=== PATIENT | male | born 1965 | race Caucasian/White ===

== ENCOUNTER → 2016-09-02 | Outpatient (CLI) | payer OTHER ==
[2016-09-02 11:08] LABS: BASOPHILS # (AUTO) 0.03 10*3/UL; BASOPHILS % (AUTO) 0.4 % (0-1); EOSINOPHILS % (AUTO) 2.6 % (0-8); HEMATOCRIT 43.6 % (42.0-52.0); HEMOGLOBIN 15.2 g/dL (14.0-18.0); IMM GRAN % (AUTO) 0.4 % (0-5); IMM GRAN# (AUTO) 0.03 10*3/UL; LYMPHOCYTES # (AUTO) 2.44 10*3/uL; LYMPHOCYTES % (AUTO) 32.9 % (10-50); MEAN CORPUSCULAR HEMOGLOBIN 31.9 PG (27-31); MEAN CORPUSCULAR HGB CONC 34.9 g/dL (33-37); MEAN PLATELET VOLUME 10.1 FL (7.4-12.2); MONOCYTES # (AUTO) 0.58 10*3/UL (0.3-0.8); MONOCYTES % (AUTO) 7.8 % (5-15); NEUTROPHILS # (AUTO) 4.15 10*3/UL; NEUTROPHILS % (AUTO) 55.9 % (50-80); RDW COEFFICIENT OF VARIATION 13.6 % (11.5-14.5); RED BLOOD COUNT 4.76 10^6/uL (4.70-6.10); WHITE BLOOD COUNT 7.42 10^3/uL (4.8-10.8)
[2016-09-02 11:12] LABS: ASPARTATE AMINO TRANSFERASE 28 IU/L (21-57); BILIRUBIN,TOTAL 0.9 mg/dL (0.3-1.2); BLOOD UREA NITROGEN 14 mg/dL (7-22); BUN/CREATININE RATIO 15.55 (6-20); CALCIUM 9.4 mg/dL (8.7-10.7); CHLORIDE 102 meq/L (98-112); CREATININE 0.9 mg/dL (0.70-1.50); EST GLOMERULAR FILTRATION > 60 (>60 ml/min/1.73m(2)); GLUCOSE 98 mg/dL (78-110); POTASSIUM 3.6 meq/L (3.8-5.2); SODIUM 141 meq/L (135-145); TOTAL PROTEIN 7.4 g/dL (6.1-8.0)
[2016-09-02 11:13] LABS: PLATELET MORPHOLOGY COMMENT NORMAL MORPHOLOGY (NORM)
== END ==
LOC: LAB 10:33
PROVIDERS: ATTEND Urology
DX: R68.82 Decreased libido (principal)
CPT/HCPCS: 36415; 80053; 84403; 85025

== ENCOUNTER → 2017-03-01 | Outpatient (CLI) | payer OTHER ==
[2017-03-01 09:41] LABS: HEMATOCRIT 46.8 % (42.0-52.0); HEMOGLOBIN 16.4 g/dL (14.0-18.0); MEAN CORPUSCULAR HEMOGLOBIN 31.5 PG (27-31); MEAN PLATELET VOLUME 9.5 FL (7.4-12.2); NEUTROPHILS % (AUTO) 46.4 % (50-80)
[2017-03-01 09:42] LABS: BASOPHILS # (AUTO) 0.04 10*3/UL; BASOPHILS % (AUTO) 0.4 % (0-1); EOSINOPHILS # (AUTO) 0.31 10*3/UL; EOSINOPHILS % (AUTO) 3.5 % (0-8); LYMPHOCYTES # (AUTO) 3.66 10*3/uL; MONOCYTES # (AUTO) 0.74 10*3/UL (0.3-0.8); MONOCYTES % (AUTO) 8.3 % (5-15); NEUTROPHILS # (AUTO) 4.13 10*3/UL; PLATELET MORPHOLOGY COMMENT NORMAL MORPHOLOGY (NORM); RBC MORPHOLOGY COMMENT NORMAL MORPHOLOGY (NORM); WBC MORPHOLOGY COMMENT NORMAL MORPHOLOGY (NORM)
[2017-03-01 09:49] LABS: BLOOD UREA NITROGEN 16 mg/dL (7-22); EST GLOMERULAR FILTRATION > 60 (>60 ml/min/1.73m(2)); SERUM ALBUMIN 4.2 g/dL (3.5-4.8)
[2017-03-01 09:50] LABS: CHOL/HDL RATIO 3.35 RATIO (0-4.0); HDL CHOLESTEROL 56 mg/dL (40-150); SERUM CHOLESTEROL 188 mg/dL (120-200)
== END ==
LOC: LAB 09:05
PROVIDERS: ATTEND Urology
DX: E29.1 Testicular hypofunction (principal); Z12.5 Encounter for screening for malignant neoplasm of prostate
CPT/HCPCS: 36415; 80053; 80061; 84153; 84403; 85025

== ENCOUNTER 2017-08-18 13:10 | Inpatient (IN) ==
--- NOTE | 2017-08-18 13:39 | PDOC ---
Abdomen/Flank HPI - General Chief Complaint: Abdomen Pain Stated Complaint: abd pain Date Seen by Provider: 08/18/17 Time Seen by Provider: 13:34 Source: POSITIVE: Patient Exam Limitations: POSITIVE: No limitations Nurse's Notes Reviewed & Considered: Yes - History of Present Illness Initial Comments: This is a 52-year-old male who presents to the emergency department with a history of problems with abdominal pain intermittently over the last 2 months or so prior to arrival. He was seen about a month ago at urgent care for the symptoms, and was given a diagnosis severe low bowel syndrome, given fentanyl and discharge. He states that the pain is not getting worse and so he decided to come in for evaluation. Pain is primarily in the periumbilical and right lower quadrant areas. No nausea vomiting, occasional diarrhea, rare hematochezia, no melena. No fevers, chills, body aches, although he does state that he gets clammy sometimes. - Patient Home Medications Home Medications: Home Medications dicyclomine 20 mg tablet 20 mg PO TID #30 tab 07/23/17 - Patient Allergies Allergies/Adverse Reactions: Allergies 3 Allergy/AdvReac Type Severity Reaction Status Date / Time No Known Allergies Allergy Verified 08/18/17 13:24 Past Medical History - heen HEENT History: Denies History Cardiovascular History: Denies History Respiratory History: Denies History Additional Respiratory History: ALLERGIC RHINITIS Gastrointestinal History: GI Bleed Additional Gastrointestinal History: BLOOD IN STOOL/ ABDOMINAL CRAMPING/ ALTERNATES FROM DIARRHEA TO CONSTIPATION Genitourinary History: Denies History Endocrine History: Denies History Musculoskeletal History: Back Pain Prosthesis or Implant: Yes (L ANKLE) Neurological History: Denies History Blood Disorders: Denies History Psychiatric History: Denies History History of Sexually Transmitted Diseases: No Cancer History: Denies History History of MDRO: No History of Other Communicable Diseases: No Tobacco Use: Former Smoker (Quit in 1993) Alcohol Use: Occasionally In the Past 12 Months, Have Used or Abuse Any Substance: Marijuana Previous Surgical History: Yes Type / Date of Surgery: APPY/ LEFT ANKLE LIGAMENT REPAIR/ TONSILLECTOMY/ WISDOM TOOTH Anesthesia Reactions: No Malignant Hyperthermia: No Significant Family History: Heart disease, Cancer, Hypertension Past Medical History Reviewed: Reviewed - Changes Made ROS - Limitations ROS Limitations: No Limitations Constitution: DENIES: Chills, Fever Cardiovascular: DENIES: Chest Pain Respiratory: REPORTS: Denies Resp Symptoms Neurological: DENIES: Difficulty Walking, Weakness Gastrointestinal: REPORTS: Abdominal Pain, Diarrhea, Bloody Stools. DENIES: Vomitting, Black Stools Musculoskeletal: DENIES: Muscle Aches Genitourinary: DENIES: Dysuria, Flank Pain, Hematuria ENT: REPORTS: Congestion, Nasal Drainage Abdominal/Flank Pain PE - General Appearance General Appearance: POSITIVE: Alert, Cooperative, Mild Distress - HEENT HEENT: POSITIVE: PERRL, EOMI - Respiratory Respiratory: POSITIVE: No Respiratory Distress, Breath Sounds Normal. NEGATIVE : Wheezes, Rales, Rhonchi - Cardiovascular Cardiovascular: POSITIVE: Regular Rate and Rhythm, Heart Sounds Normal - Chest Chest: POSITIVE: Non Tender - Abdomen Additional Abdominal Details: Abdomen is soft, nondistended, with mild to moderate tenderness to palpation in the infraumbilical and right lower quadrant areas. No rebound or guarding. Active bowel sounds. - Back Back: NEGATIVE: CVA Tenderness (R), CVA Tenderness (L) - Skin Skin: POSITIVE: Intact, Warm, Dry, No Rash - Extremities Additional Extremities Details: No pitting edema - Neurological Neurological: POSITIVE: Affect Apporpriate, Oriented X3 - Psychological Psychiatric: POSITIVE: Affect Appropriate, Mood Appropriate Abdomen Progress - Results Reviewed by me Xrays/CTs/US Reviewed by me: Yes Discussed with Radiologist: Yes Radiology Findings: Sigmoid diverticulitis with small contained perforation. Lab Results Reviewed by Me: Yes CBC and BMP: 08/18/17 14:10 08/18/17 14:10 - Patient's Progress Pain Medication Addressed: POSITIVE: Yes Re-examine Time: 16:23 Re-Examine Comment: Patient is stable, results discussed. Status: POSITIVE: Improved MDM / ED Course: Emergency room course: After initial evaluation, an IV was started. Labs were drawn, and a CT of his abdomen and pelvis was ordered. He was given Zofran and fentanyl for pain. Labs returned, his white count was 17,000. His CT shows acute sigmoid diverticulitis with small contained perforation. I suspect when discussed these results with Dr. Pruitt, the general surgeon on-call. After that discussion, his suggestion was to start him on Invanz and admit him for antibiotic cooldown by the hospitalist. He will subsequently have a resection with primary anastomosis if all goes well. - Consult Consulting MD will see pt:: POSITIVE: In ED Patient Care Time - Estimated PCT Patient Care Time (In Minutes): 25 Discharge Clinical Impression: Diverticulitis large intestine Discharge Disposition: Admit to Inpatient Condition: Stable Follow Up With: STEFFANIE PETERS [Primary Care Provider] - Date Decision to Admit to Inpatient: 08/18/17 Time Decision to Admit to Inpatient: 16:26
[2017-08-18] MEDS ORDERED: ONDANSETRON 4 MG/2 ML VIAL IVP ONE (13:41)
[2017-08-18] MEDS ORDERED: Sodium Chloride 0.9% 1,000 ML PRIMARY IV ONE (13:41)
[2017-08-18] MEDS ORDERED: fentaNYL Inj 100 MCG/2 ML VIAL IVP ONE (13:41)
[2017-08-18] MEDS: NORMAL SALINE 10 ML SYRINGE FLUSH IVP PRN ×3 (14:10→14:21)
[2017-08-18 14:28] LABS: BASOPHILS # (AUTO) 0.03 10*3/UL; BASOPHILS % (AUTO) 0.2 % (0-1); EOSINOPHILS # (AUTO) 0.22 10*3/UL; EOSINOPHILS % (AUTO) 1.2 % (0-8); Hematocrit [HCT] 51.9 % (42.0-52.0); Hemoglobin [HGB] 17.7 g/dL (14.0-18.0); LYMPHOCYTES # (AUTO) 2.39 10*3/uL; MEAN CORPUSCULAR HEMOGLOBIN 30.9 PG (27-31); MEAN CORPUSCULAR HGB CONC 34.1 g/dL (33-37); MEAN CORPUSCULAR VOLUME 90.6 FL (80-90); MEAN PLATELET VOLUME 9.8 FL (7.4-12.2); MONOCYTES # (AUTO) 1.69 10*3/UL (0.3-0.8); MONOCYTES % (AUTO) 9.6 % (5-15); NEUTROPHILS # (AUTO) 13.23 10*3/UL; NEUTROPHILS % (AUTO) 75.1 % (50-80); RED BLOOD COUNT 5.73 10^6/uL (4.70-6.10)
[2017-08-18 14:32] LABS: PLATELET MORPHOLOGY COMMENT NORMAL MORPHOLOGY (NORM); RBC MORPHOLOGY COMMENT NORMAL MORPHOLOGY (NORM); WBC MORPHOLOGY COMMENT NORMAL MORPHOLOGY (NORM)
[2017-08-18 14:37] LABS: BLOOD UREA NITROGEN 11 mg/dL (7-22); LIPASE 76 IU/L (23-300); SERUM ALBUMIN 4.6 g/dL (3.5-4.8)
[2017-08-18 14:55] LABS: BILIRUBIN,URINE NEGATIVE (NEG); CLARITY,URINE CLEAR (CLEAR); COLOR,URINE YELLOW (Y); GLUCOSE, URINE (UA) NEGATIVE (NEG); OCCULT BLOOD,URINE Trace-intact (NEG); PROTEIN,URINE NEGATIVE (NEG); UROBILINOGEN,URINE 0.2 EU/dL (0.2)
[2017-08-18 15:02] LABS: URINE SAMPLE TYPE CLEAN CATCH URINE
--- NOTE | 2017-08-18 15:59 | DI ---
History: Physician Notes: Tech Comments: Exam: CT ABDOMEN + PELVIS With Contrast Comparison: None available FINDINGS: Lung bases are clear. The liver, adrenal glands, spleen, pancreas, gallbladder and abdominal aorta appear within limits. Nonobstructing stone lower pole right kidney coronal 70. Symmetric nephrograms without hydronephrosis. Very small renal cyst upper pole left kidney. No bowel dilation or free air in the upper abdomen. Diverticulosis with sigmoid diverticulitis, pericolonic fat stranding and edema and a couple of small foci of air at the pericolonic fat for example axial 106 and coronal 42 which may represent a contained perforation in the mesentery. No abscess. Mild wall thickening of adjacent small bowel loop. Very small pelvic free fluid. The bladder is collapsed. Bilateral nonacute L5 spondylolysis. Nonspecific 1.2 cm ovoid increased area of density within the L1 vertebral body coronal 85. Old right lumbar transverse process fracture deformities. IMPRESSION: Diverticulosis with sigmoid diverticulitis, pericolonic fat stranding and edema and a couple of small foci of air at the pericolonic fat for example axial 106 and coronal 42 which may represent a contained perforation in the mesentery. No abscess. Mild wall thickening of adjacent small bowel loop. Very small pelvic free fluid. No bowel dilation or free air in the upper abdomen. Nonobstructing stone lower pole right kidney coronal 70. Symmetric nephrograms without hydronephrosis. Very small renal cyst upper pole left kidney.
[2017-08-18] MEDS ORDERED: Ertapenem Inj 1 GM in Sodium Chloride 0.9% 100 ML IV ONE (16:26)
[2017-08-18] MEDS ORDERED: LIDOCAINE W/ SODIUM BICARB 0.5 ML SYR SUBD PRN (17:13)
[2017-08-18] MEDS ORDERED: Lactated Ringers 1,000 ML PRIMARY IV ONE ×2 (17:13)
[2017-08-18] MEDS ORDERED: Ertapenem Inj 1 GM in Sodium Chloride 0.9% 100 ML IV SCH (17:13)
[2017-08-18] MEDS ORDERED: NORMAL SALINE 10 ML SYRINGE FLUSH IVP PRN (17:13)
[2017-08-18] MEDS ORDERED: ACETAMINOPHEN 325 MG TABLET PO PRN (17:13)
[2017-08-18] MEDS ORDERED: ONDANSETRON 4 MG/2 ML VIAL IVP PRN (17:13)
[2017-08-18] MEDS ORDERED: HYDROmorphone 2 MG/1 ML IVP PRN (17:14)
--- NOTE | 2017-08-18 17:26 | PDOC ---
HPI - History of Present Illness Date of Service: 08/18/17 Time of Service: 17:20 Chief Complaint: Abdominal pain History of Present Illness: This very pleasant 52-year-old male with prior history of colonoscopy that was positive only for mild hemorrhoids at the time who came in stating that he had development of abdominal pain, sharp, fairly constant, and increasing in intensity over the last 2 months. It was located in her umbilical and inferior to the umbilicus. Never quite had a pain like this before. No fevers and no chills. He has had intermittent diarrhea and constipation. Nothing is really seemed to make it better. He went into the urgent care clinic and was diagnosed with irritable bowel syndrome and they placed him on Bentyl. The patient tells me that did not help at all and his pain persisted and got significantly worse today. He came in for evaluation and was found to have a sigmoid diverticulum that appeared ruptured. It appeared to be a contained rupture. No abscess. He does not recall being told he had diverticular disease in the past. He is otherwise not on any medications and is otherwise healthy. As the pain was around the umbilicus, he thought maybe this was an umbilical hernia recurrence. Past Medical History Medical History: None Surgical History: 1. Ankle surgery. 2. Appendix removal. 3. Umbilical hernia repair Pertinent Family History: Significant for colon cancer in his mom and prostate cancer in his father. Past Social History: Smokes occasional marijuana. Does not smoke tobacco. Rarely drinks alcohol. Works for the [employer] for 12 years, has 2 children with his current and 4 children overall that he describes as healthy. Tobacco Use: Former Smoker (Quit in 1993) Do you dip or chew tobacco: No In the Past 12 Months, Have Used or Abuse Any of the Following Substance: Marijuana Alcohol Use: Occasionally Medication / Allergies Home Medications: Home Medications Medication Instructions Recorded Confirmed Type dicyclomine 20 mg tablet 20 mg PO TID #30 tab 07/23/17 08/18/17 Rx Allergies/Adverse Reactions: Allergies 3 Allergy/AdvReac Type Severity Reaction Status Date / Time No Known Allergies Allergy Verified 08/18/17 13:24 Review of Systems - Review of Systems All Systems: Reviewed & No Additional Complaints Except as Stated (I did a 12 point review systems and it was negative other than that discussed in history present illness.) Exam - Vitals Vital Signs: Vital Signs - Last Taken Temperature 97.1 F 08/18/17 13:10 Pulse Rate 105 H 08/18/17 13:10 Respiratory Rate 17 08/18/17 13:10 Blood Pressure 131/87 08/18/17 13:10 Pulse Ox 95 08/18/17 13:10 - General General Appearance: No Acute Distress, Cooperative - Head Head Exam: Normal Inspection, Normocephalic, Atraumatic - Eye Eye Exam: POSITIVE: EOMI, No Scleral Icterus - ENT ENT Exam: POSITIVE: Mucous Membranes Moist - Neck Neck Exam: Normal Inspection, No Tenderness, No Lymphadenopathy, No Thyromegaly - Respiratory Respiratory Exam: POSITIVE: Clear to Auscultation - Bilaterally, Breathing Non Labored, Normal to Percussion and Palpation - Cardiovascular Cardiovascular Exam: POSITIVE: RRR, No Murmur, No Clicks, No Gallops, No Rubs, No JVD - GI/Abdominal GI/Abdominal Exam: POSITIVE: Normal Bowel Sounds, Non Tender, Non Distended, Soft Additional GI/Abdominal Exam Details: I could not elicit tenderness, but the patient did state it was tender with palpation around the umbilicus and in the inferior quadrants. - Rectal Rectal Exam: POSITIVE: Deferred - External Exam: POSITIVE: Deferred Exam: POSITIVE: Deferred - Extremities Extremities Exam: POSITIVE: No Clubbing Present, No Edema Present, No Cyanosis Present - Back Back Exam: POSITIVE: Normal Inspection, No CVA Tenderness - Neurological Neurological Exam: POSITIVE: Alert, Oriented x 3, No Facial Droop, Speech Intact / Clear, Moves All Extremities Equally - Psychiatric Psychiatric Exam: POSITIVE: Normal Affect, Normal Mood - Integumentary Integumentary Exam: POSITIVE: Normal Color, Warm, Dry, Intact - Central Line Examination Central Line Present on Admission: No Results - Labs CBC and BMP: 08/18/17 14:10 08/18/17 14:10 Additional Lab Results: 08/18/17 08/18/17 13:41 14:10 Calcium 9.4 Total Bilirubin 1.0 AST 31 ALT 51 Alkaline Phosphatase 78 Total Protein 8.1 H Albumin 4.6 Amylase 58 Lipase 76 Ur Collection Type Clean catch urine Urine Occult Blood Trace-intact H Ur Culture Indicated? Culture not set - Imaging Status: Image Reviewed by Me, Report Reviewed by Me (The CT scan report shows a small left kidney cyst which I saw on my review of the film, and contained diverticular perforation. This is in the sigmoid colon.) Assessment and Plan - Patient Problems (1) Perforation of sigmoid colon due to diverticulitis Current Visit: Yes Status: Acute Code(s): K57.20 - Diverticulitis of large intestine with perforation and abscess without bleeding (2) Diverticulitis Current Visit: Yes Status: Acute Code(s): K57.92 - Diverticulitis of intestine, part unspecified, without perforation or abscess without bleeding Qualifiers: Diverticulitis site: large intestine Diverticulitis bleeding: without bleeding Diverticulitis complication: with perforation Qualified Code(s): K57.20 - Diverticulitis of large intestine with perforation and abscess without bleeding (3) Abdominal pain Current Visit: Yes Status: Acute Code(s): R10.9 - Unspecified abdominal pain Qualifiers: Abdominal location: periumbilical Qualified Code(s): R10.33 - Periumbilical pain - Assessment / Plan Additional Assessment/Plan Details: Admit the patient. Bolus LR 1 and then LR at 125 MLS per hour. Check electrolytes, CBC with differential, and PT and INR in the morning. Invanz IV, 1 g, every 24 hours. He'll need antibiotics for 10-14 days. Surgery consult, Dr. Pruitt is been called from the emergency room and will see the patient in terms of timing for any potential surgery for what appears to be sigmoid diverticular disease and diverticulitis. We all agree that it would be best to calm the bowel down first with antibiotics. Gut rest. Parenteral pain medications with Dilaudid and antiemetics as well. She is here today post this episode, I think the patient should increase fiber intake. Check labs a.m. I discussed with the patient and his , and they agreed with the plan.
--- NOTE | 2017-08-18 18:09 | CONSULT ---
Consult Note - Consult Consult Date: 08/18/17 Reason for Consult: PreOp Consulation : General Surgery Requesting Physician: Dr. Murphy, and Dr. Montero Primary Care Provider: Telma Kirby MD - History of Present Illness History of Present Illness: The patient is a 52-year-old male who reports he's had problems for several months. Actually he had a bout of abdominal pain about 6 months ago which resolved on its own. Sometime in the middle of June he developed some abdominal pain. It got worse and he was seen in the open access clinic on July [id number]. He was having some diarrhea as well as some bright red blood per rectum. He had recently found out that he did had a family history of colon cancer. He did have a normal colonoscopy in May of 2014. He was diagnosed with irritable bowel syndrome and started on Bentyl. He stopped taking it because there was no benefit from taking it. His pain just kind of hung around. 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 He had a sudden jar on his abdomen at work and the pain escalated. He had an appointment scheduled with his primary care provider, Dr. Kirby, on Sunday. Because of increasing pain today he presented to the emergency room. He describes the pain as suprapubic and right lower quadrant. He denied nausea or vomiting. He denied fever or chills. He denied diarrhea. He tends to be a bit on the constipated side was some soft stool afterwards. He occasionally has bright red blood per rectum. He has no known prior history of diverticulitis. CT scan shows findings consistent with acute diverticulitis. His sigmoid colon is in the midline and to the right. It is in a suprapubic location. There is a small amount of extra colonic air. These were just little mesenteric bubbles. There is some pericolonic stranding. There is no abscess. His white count is elevated at 17,000. I am asked to see him in consultation. I did his normal colonoscopy 06/11/2014. Review of Systems - Gastrointestinal Gastrointestinal / Abdominal: REPORTS: Constipation, Abdominal Pain, Bloating, Bright Red Blood per Rectum, See HPI. DENIES: Negative System Review, Nausea, Vomiting, Diarrhea, Bloody Stool, Poor Appetite, Heartburn, Regurgitation, Lactose Intolerance, Melena, Other Past Medical History Medical History: Erectile dysfunction. Low testosterone. Surgical History: 1. Ankle surgery. 2. Appendix removal. 3. Umbilical hernia repair. 4. Tonsillectomy. 5. Wrist ganglion. 6. Colonoscopy 2013 Pertinent Family History: Significant for colon cancer in his mom and prostate cancer in his father. Past Social History: Smokes occasional marijuana. Does not smoke tobacco. Rarely drinks alcohol. Works for the [employer]. for 12 years, has 2 children with his current and 4 children overall that he describes as healthy. Tobacco Use: Former Smoker (Quit in 1993) Do you dip or chew tobacco: No In the Past 12 Months, Have Used or Abuse Any of the Following Substance: Marijuana Alcohol Use: Occasionally Medication / Allergies Home Medications: Home Medications Medication Instructions Recorded Confirmed Type dicyclomine 20 mg tablet 20 mg PO TID #30 tab 07/23/17 08/18/17 Rx Allergies/Adverse Reactions: Allergies 3 Allergy/AdvReac Type Severity Reaction Status Date / Time No Known Allergies Allergy Verified 08/18/17 13:24 Results - Labs CBC and BMP: 08/18/17 14:10 08/18/17 14:10 - Imaging Status: Image Reviewed by Me, Report Reviewed by Me Exam - Vitals Vital Signs: Vital Signs Temperature 97.4 F Temperature Source Temporal Artery Scan Pulse Rate 93 Respiratory Rate 15 Blood Pressure 126/94 Pulse Ox 94 - General General Appearance: No Acute Distress, Cooperative - Respiratory Respiratory Exam: POSITIVE: Clear to Auscultation - Bilaterally, Breathing Non Labored - Cardiovascular Cardiovascular Exam: POSITIVE: RRR, No Murmur - GI/Abdominal GI/Abdominal Exam: POSITIVE: Normal Bowel Sounds, Soft, Distended, Guarding Additional GI/Abdominal Exam Details: Right lower quadrant and suprapubic tenderness with voluntary guarding and focal rebound. Remainder of the abdomen is soft. Hyperactive bowel tones. Patient is obese. No mass appreciated. He does not have an acute surgical abdomen. - Rectal Rectal Exam: POSITIVE: Deferred - Neurological Neurological Exam: POSITIVE: Alert, Oriented x 3 - Psychiatric Psychiatric Exam: POSITIVE: Normal Affect, Normal Mood Assessment and Plan - Patient Problems (1) Diverticulitis large intestine Current Visit: Yes Status: Acute Priority: High Comment: This has been going on for some time. At the present time he has acute diverticulitis with some pericolonic air bubbles. There is no abscess. There is no free fluid. I discussed acute diverticulitis with the patient and his . Most likely will be able to control this with antibiotics. If he is improved in 72 hours he could go home on oral antibiotics. Would recommend an additional 2 week course of oral antibiotics. If he fails to improve at 72 hours we'll repeat a CT scan of his abdomen and pelvis. If the patient develops an abscess would consider percutaneous drainage. If he develops an acute abdomen he'll need to undergo an emergent sigmoid colectomy with diverting colostomy. The patient and his understand were trying to calm this down so that I can do an elective colonoscopy in 4-6 weeks. We'll give consideration for an elective colectomy as he does have a perforation. We will discuss that more in the future. I have also discussed this case with the hospitalist, Dr. Montero. All agree to proceed as outlined. Code(s): K57.32 - Diverticulitis of large intestine without perforation or abscess without bleeding Qualifiers: Diverticulitis bleeding: without bleeding Diverticulitis complication: with perforation and without abscess Qualified Code(s): K57.20 - Diverticulitis of large intestine with perforation and abscess without bleeding
[2017-08-18] MEDS: HYDROmorphone 2 MG/1 ML IVP PRN (18:16)
[2017-08-18] MEDS: Lactated Ringers 1,000 ML PRIMARY IV SCH (19:17)
[2017-08-19] MEDS: HYDROmorphone 2 MG/1 ML IVP PRN ×5 (00:51→22:33)
[2017-08-19] MEDS: Lactated Ringers 1,000 ML PRIMARY IV SCH ×3 (02:29→13:04)
[2017-08-19 05:11] LABS: BASOPHILS # (AUTO) 0.04 10*3/UL; BASOPHILS % (AUTO) 0.3 % (0-1); EOSINOPHILS # (AUTO) 0.28 10*3/UL; EOSINOPHILS % (AUTO) 1.9 % (0-8); Hematocrit [HCT] 46.2 % (42.0-52.0); Hemoglobin [HGB] 15.3 g/dL (14.0-18.0); LYMPHOCYTES # (AUTO) 3.16 10*3/uL; MEAN CORPUSCULAR HEMOGLOBIN 30.8 PG (27-31); MEAN CORPUSCULAR HGB CONC 33.1 g/dL (33-37); MEAN CORPUSCULAR VOLUME 93.1 FL (80-90); MEAN PLATELET VOLUME 10.2 FL (7.4-12.2); MONOCYTES # (AUTO) 1.42 10*3/UL (0.3-0.8); MONOCYTES % (AUTO) 9.7 % (5-15); NEUTROPHILS # (AUTO) 9.69 10*3/UL; NEUTROPHILS % (AUTO) 66.1 % (50-80); RED BLOOD COUNT 4.96 10^6/uL (4.70-6.10)
[2017-08-19 05:12] LABS: PLATELET MORPHOLOGY COMMENT NORMAL MORPHOLOGY (NORM); RBC MORPHOLOGY COMMENT NORMAL MORPHOLOGY (NORM); WBC MORPHOLOGY COMMENT NORMAL MORPHOLOGY (NORM)
[2017-08-19 05:21] LABS: BLOOD UREA NITROGEN 14 mg/dL (7-22); BUN/CREATININE RATIO 15.55 (6-20); SERUM ALBUMIN 3.8 g/dL (3.5-4.8)
--- NOTE | 2017-08-19 13:12 | PDOC(PROG) ---
Date and Time of Service: 08/19/2017 12:45 AM Interval History: Patient reports he is feeling better. Passing gas. No bowel movement. Bloating is less. No nausea or vomiting. Has used pain medicines a few times but overall feeling better. He thinks the pain is less. Hungry. Objective : Data - Labs CBC and BMP: 08/19/17 04:13 08/19/17 04:13 - Vital Signs Vital Signs and I&O: Vital Signs - Last Taken Temperature 97.4 F 08/19/17 11:41 Pulse Rate 77 08/19/17 11:41 Respiratory Rate 16 08/19/17 11:41 Blood Pressure 118/68 08/19/17 11:41 Pulse Ox 93 08/19/17 11:41 Intake and Output (24hr x 4 totals) 08/17/17 08/18/17 08/19/17 08/20/17 05:59 05:59 05:59 05:59 Intake Total 2714 / 2714 480 / 480 Output Total 350 / 350 450 / 450 Balance 2364 / 2364 30 / Objective : Exam - General General Appearance: No Acute Distress, Cooperative - Respiratory Respiratory Exam: Clear to Auscultation - Bilaterally, Breathing Non Labored - Cardiovascular Cardiovascular Exam: RRR, No Murmur - GI/Abdominal GI/Abdominal Exam: Normal Bowel Sounds, Soft, Distended (Abdomen is full. Remains soft.) Additional GI/Abdominal Exam Details: The abdomen is full but soft. Good bowel tones. Right lower quadrant and suprapubic tenderness to palpation. I believe his pain is clearly less than it was last night when I examined him. - Rectal Rectal Exam: Deferred - Neurological Neurological Exam: Alert, Oriented x 3 - Psychiatric Psychiatric Exam: Normal Affect, Normal Mood Assessment and Plan - Patient Problems (1) Diverticulitis large intestine Current Visit: Yes Status: Acute Priority: High Comment: I think she is definitely improved since last night. Continue present care. We will increase him to a full liquid diet and saline lock his IV fluids. Check a.m. labs. Again plan 72 hours of IV antibiotics. Discussed again with the patient. His white count has decreased from 17,600 to 14,600. Everything seems to be going in the right direction. Code(s): K57.32 - Diverticulitis of large intestine without perforation or abscess without bleeding Qualifiers: Diverticulitis bleeding: without bleeding Diverticulitis complication: with perforation and without abscess Qualified Code(s): K57.20 - Diverticulitis of large intestine with perforation and abscess without bleeding
--- NOTE | 2017-08-19 15:45 | PDOC(PROG) ---
Date and Time of Service: 08/19/2017, 1541 Interval History: no CP, no SOB, no nausea or vomiting, abdominal pain, improved, but present in suprapubic region. Objective : Data - Labs CBC and BMP: 08/19/17 04:13 08/19/17 04:13 Objective : Exam - General General Appearance: No Acute Distress, Cooperative Additional General Exam Details: Vital Signs (24 hrs) Temp Pulse Pulse Resp BP BP Pulse Ox 08/19/17 11:41 97.4 F 77 16 118/68 93 08/19/17 07:06 97.2 F 80 14 111/73 91 08/19/17 06:49 80 08/19/17 04:59 94 08/19/17 04:48 97.2 F 82 20 117/69 97 08/19/17 00:58 98.2 F 93 22 116/69 95 08/18/17 19:45 98.8 F 101 H 20 133/75 92 08/18/17 19:15 92 08/18/17 16:50 97.4 F 93 15 126/94 94 - Eye Eye Exam: No Scleral Icterus - ENT ENT Exam: Mucous Membranes Moist - Respiratory Respiratory Exam: Clear to Auscultation - Bilaterally, Breathing Non Labored - Cardiovascular Cardiovascular Exam: RRR, No Murmur, No Clicks, No Gallops, No Rubs, No JVD - GI/Abdominal GI/Abdominal Exam: Normal Bowel Sounds, Non Distended, Soft Additional GI/Abdominal Exam Details: minimal lower abdominal pain with tenderness - Extremities Extremities Exam: No Clubbing Present, No Edema Present, No Cyanosis Present - Neurological Neurological Exam: Alert, Oriented x 3, No Facial Droop, Speech Intact / Clear, Moves All Extremities Equally - Psychiatric Psychiatric Exam: Normal Affect, Normal Mood Assessment and Plan - Patient Problems (1) Perforation of sigmoid colon due to diverticulitis Current Visit: Yes Status: Acute Code(s): K57.20 - Diverticulitis of large intestine with perforation and abscess without bleeding (2) Diverticulitis Current Visit: Yes Status: Acute Code(s): K57.92 - Diverticulitis of intestine, part unspecified, without perforation or abscess without bleeding Qualifiers: Diverticulitis site: large intestine Diverticulitis bleeding: without bleeding Diverticulitis complication: with perforation Qualified Code(s): K57.20 - Diverticulitis of large intestine with perforation and abscess without bleeding (3) Abdominal pain Current Visit: Yes Status: Acute Code(s): R10.9 - Unspecified abdominal pain Qualifiers: Abdominal location: periumbilical Qualified Code(s): R10.33 - Periumbilical pain - Assessment / Plan Additional Assessment/Plan Details: continue IV fluids and antibiotics start oral pain medications if okay at day 3, then hopefully home with 10-14 days course of antibiotics, surgery follow up, and possibly colonoscopy and elective partial colectomy for diverticular disease. labs in AM discussed with patient and surgery, he agrees I encouraged the patient to stop marijuana
[2017-08-19] MEDS ORDERED: HYDROcodone-APAP 5 MG -325 MG TABLET PO PRN (15:46)
[2017-08-19] MEDS: Ertapenem Inj 1 GM in Sodium Chloride 0.9% 100 ML IV SCH (16:05)
[2017-08-20] MEDS: Lactated Ringers 1,000 ML PRIMARY IV SCH ×2 (01:47→01:49)
[2017-08-20] MEDS: HYDROmorphone 2 MG/1 ML IVP PRN ×4 (04:10→21:08)
[2017-08-20 05:28] LABS: Hematocrit [HCT] 44.9 % (42.0-52.0); Hemoglobin [HGB] 15.3 g/dL (14.0-18.0); MEAN CORPUSCULAR HEMOGLOBIN 31.5 PG (27-31); MEAN CORPUSCULAR HGB CONC 34.1 g/dL (33-37); MEAN CORPUSCULAR VOLUME 92.6 FL (80-90); MEAN PLATELET VOLUME 9.9 FL (7.4-12.2); RED BLOOD COUNT 4.85 10^6/uL (4.70-6.10)
[2017-08-20 05:29] LABS: BLOOD UREA NITROGEN 11 mg/dL (7-22); BUN/CREATININE RATIO 13.75 (6-20)
[2017-08-20 05:37] LABS: PLATELET MORPHOLOGY COMMENT NORMAL MORPHOLOGY (NORM); RBC MORPHOLOGY COMMENT NORMAL MORPHOLOGY (NORM); WBC MORPHOLOGY COMMENT SEE COMMENTS (NORM)
[2017-08-20 05:38] LABS: BAND NEUTROPHILS % 0 % (0-10); BASOPHILS % (MANUAL) 0 % (0-1); EOSINOPHILS % (MANUAL) 1 % (0-8); MONOCYTES % (MANUAL) 5 % (0-12); NEUTROPHILS % (MANUAL) 62 % (50-80)
--- NOTE | 2017-08-20 12:00 | PDOC(PROG) ---
Date and Time of Service: 08/20/2017 patient seen 11:40 AM Interval History: Feeling better every day. No nausea or vomiting. Tolerating full liquids. He is passing gas regularly. No bowel movement. Feels much less bloated. White count is down to 11,400. No fevers. Objective : Data - Labs CBC and BMP: 08/20/17 04:05 08/20/17 04:05 - Vital Signs Vital Signs and I&O: Vital Signs - Last Taken Temperature 97.6 F 08/20/17 11:04 Pulse Rate 75 08/20/17 11:04 Respiratory Rate 18 08/20/17 11:04 Blood Pressure 134/82 08/20/17 11:04 Pulse Ox 91 08/20/17 11:04 Intake and Output (24hr x 4 totals) 08/18/17 08/19/17 08/20/17 08/21/17 05:59 05:59 05:59 05:59 Intake Total 2714 / 2714 3527 / 3527 1155 / 1155 Output Total 350 / 350 450 / 450 600 / 600 Balance 2364 / 2364 3077 / 3077 555 / 555 Objective : Exam - General General Appearance: No Acute Distress, Cooperative - Respiratory Respiratory Exam: Clear to Auscultation - Bilaterally, Breathing Non Labored - Cardiovascular Cardiovascular Exam: RRR, No Murmur - GI/Abdominal GI/Abdominal Exam: Soft Additional GI/Abdominal Exam Details: The abdomen is full but soft. Normoactive bowel tones.. Suprapubic and right lower quadrant tenderness which is much less than on admission. Remainder of the abdominal exam is benign. Assessment and Plan - Patient Problems (1) Diverticulitis large intestine Current Visit: Yes Status: Acute Priority: High Comment: Improving daily. White count almost normal. He is due for his third dose of Invanz this afternoon. We'll check a white count in the morning. As long as his white count is normal and he continues to improve can probably be discharged home tomorrow. We will recommend 14 full days of oral antibiotics with follow-up with my office in a week to 10 days after discharge. Again we' ll plan a colonoscopy in 4-6 weeks and strongly consider elective sigmoid colectomy in the future. Code(s): K57.32 - Diverticulitis of large intestine without perforation or abscess without bleeding Qualifiers: Diverticulitis bleeding: without bleeding Diverticulitis complication: with perforation and without abscess Qualified Code(s): K57.20 - Diverticulitis of large intestine with perforation and abscess without bleeding
--- NOTE | 2017-08-20 12:20 | PDOC(PROG) ---
Date and Time of Service: 08/20/2017, 1220 Interval History: No complains of chest pain, shortness breath, nausea or vomiting. Lower abdominal pain, suprapubic in nature, still persist, but probably about as it was yesterday. He is tolerating diet so far. No bowel movements yet. Objective : Data - Labs CBC and BMP: 08/20/17 04:05 08/20/17 04:05 Objective : Exam - General General Appearance: No Acute Distress, Cooperative Additional General Exam Details: Vital Signs - Last Taken Temperature 97.6 F 08/20/17 11:04 Pulse Rate 75 08/20/17 11:04 Respiratory Rate 18 08/20/17 11:04 Blood Pressure 134/82 08/20/17 11:04 Pulse Ox 91 08/20/17 11:04 - Head Head Exam: Normal Inspection, Normocephalic, Atraumatic - Eye Eye Exam: No Scleral Icterus - ENT ENT Exam: Mucous Membranes Moist - Respiratory Respiratory Exam: Clear to Auscultation - Bilaterally, Breathing Non Labored - Cardiovascular Cardiovascular Exam: RRR, No Murmur, No Clicks, No Gallops, No Rubs, No JVD - GI/Abdominal GI/Abdominal Exam: Normal Bowel Sounds, Non Tender, Non Distended, Soft - Extremities Extremities Exam: No Clubbing Present, No Edema Present, No Cyanosis Present - Neurological Neurological Exam: Alert, Oriented x 3, Normal Gait, No Facial Droop, Speech Intact / Clear, Moves All Extremities Equally - Psychiatric Psychiatric Exam: Normal Affect, Normal Mood Assessment and Plan - Patient Problems (1) Perforation of sigmoid colon due to diverticulitis Current Visit: Yes Status: Acute Code(s): K57.20 - Diverticulitis of large intestine with perforation and abscess without bleeding (2) Diverticulitis Current Visit: Yes Status: Acute Code(s): K57.92 - Diverticulitis of intestine, part unspecified, without perforation or abscess without bleeding Qualifiers: Diverticulitis site: large intestine Diverticulitis bleeding: without bleeding Diverticulitis complication: with perforation Qualified Code(s): K57.20 - Diverticulitis of large intestine with perforation and abscess without bleeding (3) Abdominal pain Current Visit: Yes Status: Acute Code(s): R10.9 - Unspecified abdominal pain Qualifiers: Abdominal location: periumbilical Qualified Code(s): R10.33 - Periumbilical pain - Assessment / Plan Additional Assessment/Plan Details: Today is day 3 of Invanz, and we'll do a total of 14 days of anabolic therapy, likely to discharge tomorrow. CBC tomorrow. Probable follow-up CT scan but as per Dr. Pruitt at clinic follow-up, probable colonoscopy, and probable eventual elective hemicolectomy for diverticular disease. Agree with increase in dose of hydrocodone. Discussed with surgery, patient, they agree
[2017-08-20] MEDS: Ertapenem Inj 1 GM in Sodium Chloride 0.9% 100 ML IV SCH (16:26)
[2017-08-20] MEDS: HYDROcodone-APAP 7.5 MG-325 MG TABLET PO PRN (17:20)
[2017-08-21] MEDS: HYDROcodone-APAP 7.5 MG-325 MG TABLET PO PRN (04:30)
[2017-08-21 05:14] LABS: Hematocrit [HCT] 45.6 % (42.0-52.0); Hemoglobin [HGB] 15.4 g/dL (14.0-18.0); MEAN CORPUSCULAR HEMOGLOBIN 30.9 PG (27-31); MEAN CORPUSCULAR HGB CONC 33.8 g/dL (33-37); MEAN CORPUSCULAR VOLUME 91.4 FL (80-90); MEAN PLATELET VOLUME 10.2 FL (7.4-12.2); RED BLOOD COUNT 4.99 10^6/uL (4.70-6.10)
[2017-08-21 05:38] LABS: PLATELET MORPHOLOGY COMMENT SEE COMMENTS (NORM); RBC MORPHOLOGY COMMENT NORMAL MORPHOLOGY (NORM); WBC MORPHOLOGY COMMENT NORMAL MORPHOLOGY (NORM)
[2017-08-21 05:39] LABS: BAND NEUTROPHILS % 4 % (0-10); BASOPHILS % (MANUAL) 0 % (0-1); EOSINOPHILS % (MANUAL) 4 % (0-8); MONOCYTES % (MANUAL) 5 % (0-12); NEUTROPHILS % (MANUAL) 47 % (50-80)
[2017-08-21 11:22] VITALS: BP 122/67; RESP 18; TEMP 97; O2SAT 91
--- NOTE | 2017-08-21 11:52 | DCSUMMARY ---
Hospitalization Summary Admit Date: 08/18/2017 Discharge Date: 08/21/17 Primary Diagnosis:: sigmoid diverticular rupture Secondary Diagnosis:: Diverticulitis Hospital Course: This very pleasant 52-year-old male who really has no other past medical history who presented with abdominal pain, was found to have sigmoid diverticular rupture with contained air, no evidence of abscess, and diverticulitis. He was placed on Invanz, IV fluids, and pain medications and overall his white blood cell count has improved, his abdominal pain is improved , and he has remained afebrile and is ready to go home now. Patient will receive Invanz today prior to discharge, 4 days of Invanz and I written for 10 days of Augmentin therapy outside the hospital. He'll check with tablet twice daily. He has follow-up with surgery. He may need repeat CT scanning but my discussion with surgery was recommended to hold off on that for now and wait until we see how the patient is doing clinically in the office. I recommended that the patient follow surgery's instructions regarding potential elective sigmoidectomy or partial bowel resection depending on findings of colonoscopy in the future and CT scan in the future. I recommend the patient stop marijuana. No completes of chest pain, shortness breath, nausea or vomiting. Tolerating his diet. Assessment and Plan: 1. As per discharge assessments noted 2. Disposition: Patient is discharged home. 3. Condition on discharge, stable and improved. 4. Diet: regular diet 5. Activities: resume normal activities, but stop marijuana 6. Follow-Up: 1. Recommended that he see Dr. Pruitt, appointment scheduled 2. 7. Medications at the Time of Discharge: Home Medications Medication Instructions Recorded Confirmed Type Amox Tr/Potassium Clavulanate 1 ea PO BID #20 tab 08/21/17 Rx [Augmentin 875-125 Tablet] HYDROcodone/APAP 7.5/325 Tab 1 - 2 tab PO Q4H PRN #60 tab 08/21/17 Rx [Reva 7.5/325 Tab] 8. Time, care, counseling and coordination of care for this discharge is less than 30 minutes. Exam - Vitals Vital Signs: Vital Signs Temperature 97 F Temperature Source Temporal Artery Scan Pulse Rate [Pulse Oximeter] 79 Pulse Rate 93 Respiratory Rate 18 Blood Pressure [Left Arm] 122/67 Blood Pressure 126/94 Pulse Ox 91 Oxygen Flow Rate 1.5 Oxygen Delivery Method Room Air Height 6 ft 2 in Weight 256 lb 6.4 oz - General General Appearance: No Acute Distress, Cooperative - Eye Eye Exam: POSITIVE: No Scleral Icterus - ENT ENT Exam: POSITIVE: Mucous Membranes Moist - Respiratory Respiratory Exam: POSITIVE: Clear to Auscultation - Bilaterally, Breathing Non Labored - Cardiovascular Cardiovascular Exam: POSITIVE: RRR, No Murmur, No Clicks, No Gallops, No Rubs, No JVD - GI/Abdominal GI/Abdominal Exam: POSITIVE: Normal Bowel Sounds, Non Tender, Non Distended, Soft - Extremities Extremities Exam: POSITIVE: No Clubbing Present, No Edema Present, No Cyanosis Present - Neurological Neurological Exam: POSITIVE: Alert, Oriented x 3, Normal Gait, No Facial Droop, Speech Intact / Clear, Moves All Extremities Equally Data Peritnent Studies: 08/18/17 08/18/17 08/18/17 13:41 14:10 14:10 WBC 17.61 H Hgb Hct Plt Count Neutrophils % (Manual) Band Neutrophils % Sodium Potassium Chloride Carbon Dioxide Anion Gap BUN Creatinine Glucose Calcium Total Bilirubin 1.0 AST 31 ALT 51 Alkaline Phosphatase 78 Total Protein 8.1 H Albumin 4.6 Globulin 3.5 Amylase 58 Lipase 76 Ur Collection Type Clean catch urine Urine Occult Blood Trace-intact H Urine Nitrate Negative Urine Bilirubin Negative Ur Culture Indicated? Culture not set 08/20/17 08/21/17 04:05 04:22 WBC 8.77 Hgb 15.4 Hct 45.6 Plt Count 268 Neutrophils % (Manual) 47 L Band Neutrophils % 4 Sodium 139 Potassium 4.0 Chloride 101 Carbon Dioxide 26 Anion Gap 12 BUN 11 Creatinine 0.8 Glucose 99 Calcium 8.8 Total Bilirubin AST ALT Alkaline Phosphatase Total Protein Albumin Globulin Amylase Lipase Ur Collection Type Urine Occult Blood Urine Nitrate Urine Bilirubin Ur Culture Indicated? [address] [facility] [place] [address] PH: DD: [phone] FAX: [phone] ~DIAGNOSTIC IMAGING REPORT~ Patient: Christiano Templeton : 1965 Sex: M Age: 52 Exam Name: CT Abdomen/Pelvis W Contrast Exam Date: 08/18/17 Report # : [id number] CPT Code: 21848 EMR/MR #: [id number] Ordering: Frankie Solo Admiting: Primary: Telma Kirby MD. Attending: Signed History: Physician Notes: Tech Comments: Exam: CT ABDOMEN + PELVIS With Contrast Comparison: None available FINDINGS: Lung bases are clear. The liver, adrenal glands, spleen, pancreas, gallbladder and abdominal aorta appear within limits. Nonobstructing stone lower pole right kidney coronal 70. Symmetric nephrograms without hydronephrosis. Very small renal cyst upper pole left kidney. No bowel dilation or free air in the upper abdomen. Diverticulosis with sigmoid diverticulitis, pericolonic fat stranding and edema and a couple of small foci of air at the pericolonic fat for example axial 106 and coronal 42 which may represent a contained perforation in the mesentery. No abscess. Mild wall thickening of adjacent small bowel loop. Very small pelvic free fluid. The bladder is collapsed. Bilateral nonacute L5 spondylolysis. Nonspecific 1.2 cm ovoid increased area of density within the L1 vertebral body coronal 85. Old right lumbar transverse process fracture deformities. IMPRESSION: Diverticulosis with sigmoid diverticulitis, pericolonic fat stranding and edema and a couple of small foci of air at the pericolonic fat for example axial 106 and coronal 42 which may represent a contained perforation in the mesentery. No abscess. Mild wall thickening of adjacent small bowel loop. Very small pelvic free fluid. No bowel dilation or free air in the upper abdomen. Nonobstructing stone lower pole right kidney coronal 70. Symmetric nephrograms without hydronephrosis. Very small renal cyst upper pole left kidney. Dictated By: Claudy Toure MD Signed By: 08/18/17 1559 Claudy Toure MD Patient Problems - Patient Problem List (1) Perforation of sigmoid colon due to diverticulitis Current Visit: Yes Status: Acute Comment: 4 days of Invanz, Augmentin twice a day at outpatient Code(s): K57.20 - Diverticulitis of large intestine with perforation and abscess without bleeding Category: Medical (2) Diverticulitis Current Visit: Yes Status: Acute Code(s): K57.92 - Diverticulitis of intestine, part unspecified, without perforation or abscess without bleeding Qualifiers: Diverticulitis site: large intestine Diverticulitis bleeding: without bleeding Diverticulitis complication: with perforation Qualified Code(s): K57.20 - Diverticulitis of large intestine with perforation and abscess without bleeding Category: Medical (3) Abdominal pain Current Visit: Yes Status: Acute Code(s): R10.9 - Unspecified abdominal pain Qualifiers: Abdominal location: periumbilical Qualified Code(s): R10.33 - Periumbilical pain Category: Medical
[2017-08-21] MEDS ORDERED: Ertapenem Inj 1 GM in Sodium Chloride 0.9% 100 ML IV SCH (12:00)
--- NOTE | 2017-08-21 12:27 | PDOC(PROG) ---
Date and Time of Service: 08/21/2017 12:15 PM Interval History: Doing very well. Passing gas. No bowel movement. Has had minimal solid food. Pain is much improved. Bloating is less. No nausea or vomiting. White count is now normal. Objective : Data - Labs CBC and BMP: 08/21/17 04:22 08/20/17 04:05 - Vital Signs Vital Signs and I&O: Vital Signs - Last Taken Temperature 97 F 08/21/17 11:20 Pulse Rate 79 08/21/17 11:20 Respiratory Rate 18 08/21/17 11:20 Blood Pressure 122/67 08/21/17 11:20 Pulse Ox 91 08/21/17 11:20 Intake and Output (24hr x 4 totals) 08/19/17 08/20/17 08/21/17 08/22/17 05:59 05:59 05:59 05:59 Intake Total 2714 / 2714 3527 / 3527 2035 / 2035 200 / 200 Output Total 350 / 350 450 / 450 3300 / 3300 1600 / 1600 Balance 2364 / 2364 3077 / 3077 -1265 / -1265 -1400 / -1400 Objective : Exam - General General Appearance: No Acute Distress, Cooperative - Respiratory Respiratory Exam: Clear to Auscultation - Bilaterally, Breathing Non Labored - Cardiovascular Cardiovascular Exam: RRR, No Murmur - GI/Abdominal GI/Abdominal Exam: Normal Bowel Sounds, Non Distended, Soft Additional GI/Abdominal Exam Details: Minimal if any suprapubic tenderness. Only to deep palpation. - Neurological Neurological Exam: Alert, Oriented x 3 - Psychiatric Psychiatric Exam: Normal Affect, Normal Mood Assessment and Plan - Patient Problems (1) Diverticulitis large intestine Current Visit: Yes Status: Acute Priority: High Comment: Markedly improved since admission. Agree with discharge home. Palpation Augmentin and pain pills as needed. I told the patient to take a stool softener twice a day until his bowel function is normal. He should stay on a low residue diet until his bowel function is normal. Follow-up in approximately 7-10 days. At some point will need a follow-up CT scan that I would like to wait 4-6 weeks. We will plan colonoscopy about the same time. Code(s): K57.32 - Diverticulitis of large intestine without perforation or abscess without bleeding Qualifiers: Diverticulitis bleeding: without bleeding Diverticulitis complication: with perforation and without abscess Qualified Code(s): K57.20 - Diverticulitis of large intestine with perforation and abscess without bleeding
== END 2017-08-21 13:29 | disposition home or self-care (01) | DRG 392 ==
LOC: ER 13:10 → MED/SURG 16:22
PROVIDERS: ADMIT Family Medicine; ATTEND Family Medicine